=== PATIENT | male | born 1955 | race African-American/Black ===

== ENCOUNTER 2017-08-21 15:15 | Emergency (ER) | payer MEDICAID ==
[~2017-08-21] VITALS: Ht 182.9 cm; Wt 74.8 kg
[2017-08-21 15:15] VITALS: BP 123/72
[2017-08-21] MEDS ORDERED: Cyclobenzaprine 10mg Tab ORAL ONE (15:30)
--- NOTE | 2017-08-21 16:36 | Diagnostic Imaging Report ---
Indication: Back pain Technique: 3 views of the lumbar spine Comparison: None Findings:Vertebral heights are preserved. There is degenerative disc narrowing at L4-5 and L5-S1. The remaining disc spaces are preserved. The pedicles are intact. The bones are osteoporotic. No acute fractures. Surgical clips are seen in the region of the gastroesophageal junction Impression: No acute process This agrees with the preliminary interpretation provided by the emergency room physician
[2017-08-21] MEDS ORDERED: CYCLOBENZAPRINE10 MG ORAL (16:53)
--- NOTE | 2017-08-21 16:59 | Emergency Room Report ---
History of Present Illness General Chief Complaint: Back Pain-No Injury Source: Patient, EMS Present Illness HPI 62-year-old male complains of right low back pain when is back to escape out on him while he was in the store, he denies bowel or bladder incontinence, denies fever, denies any traumatic injury. He reports he is not on any regular meds at all except for chronic pain meds and he takes [place] for that which is prescribed by his pain specialist. He specifically denies use of any blood thinners actually reports he is not on any other prescription medicines at all. Allergies: Coded Allergies: No Known Allergies (Unverified , 08/21/17) Patient History Limited by: language barrier Reviewed Nursing Documentation: PMH: Agreed, PSxH: Agreed Nursing Documentation-PMH Past Medical History: No History, Except For Hx Cardiac Problems: No - FELL OF A ELECTRICAL POLL 1978 Review of Systems All Other Systems: negative except mentioned in HPI Physical Exam Vital Signs Date Time Temp Pulse Resp B/P (MAP) Pulse Ox O2 Delivery O2 Flow Rate FiO2 08/21/17 15:13 98.0 83 16 123/72 99 Room Air 98.1 Sp02 EP Interpretation: reviewed, normal General Appearance: no apparent distress, alert, non-toxic Head: normocephalic Eyes: bilateral eye normal inspection, bilateral eye PERRL, bilateral eye EOMI ENT: normal ENT inspection, hearing grossly normal, normal pharynx, no angioedema, normal voice, moist mucus membranes Neck: normal inspection, full range of motion, supple, supple/symm/no masses Respiratory: chest non-tender, lungs clear, normal breath sounds, chest symmetrical, palpation of chest normal Cardiovascular #1: normal peripheral pulses, regular rate, rhythm Cardiovascular #2: 2+ radial (R), 2+ radial (L) Gastrointestinal: normal inspection, non tender, soft, no mass, no guarding, no rebound Rectal: deferred Genitourinary: normal inspection, no CVA tenderness Musculoskeletal: normal inspection, back normal, gait/station normal, normal range of motion, non-tender, no calf tenderness, pelvis stable Neurologic: alert, responsive, fingerprint classifier III-XII nml as tested, motor strength/tone normal, sensory intact, normal gait, speech normal, other - normal perineum sensation Psychiatric: judgement/insight normal, memory normal, mood/affect normal, no suicidal/homicidal ideation Skin: normal color, no rash, warm/dry, normal turgor Lymphatic: no adenopathy Medical Decision Making Reaction to Intervention: Improved Diagnostic Impression: Primary Impression: Back pain ER Course Patient with no red flags for serious etiologies of back pain, had a normal neuro exam, was given muscle relaxants and Toradol and discharged. Prescription for Flexeril was given. X-ray normal Other X-Ray Diagnostic Results Other X-Ray Diagnostic Results : X-Ray ordered: L-spine # of Views/Limited Vs Complete: 3 View Indication: Pain EP Interpretation: Yes PA Xray: Interpretation reviewed Interpretation: no dislocation, no soft tissue swelling, no fractures, nonspecific bowel gas Impression: No acute disease Electronically Signed by: Yara Lopez MD Last Vital Signs Date Time Temp Pulse Resp B/P (MAP) Pulse Ox O2 Delivery O2 Flow Rate FiO2 08/21/17 15:29 98.0 08/21/17 15:13 83 16 123/72 99 Room Air Disposition: HOME, SELF-CARE Condition: Improved Scripts Cyclobenzaprine Hcl* (FLEXERIL*) 10 Mg Tablet 10 MG ORAL THREE TIMES A DAY, #14 TAB Prov: YARA LOPEZ M.D 08/21/17 Referrals: NOT CHOSEN IPA/,REFERRING (PCP) Departure Forms: Return to Work Return to Work in (Days): 2 Patient Instructions: Back Pain, Adult YARA LOPEZ M.D Aug 21, 2017 16:58
[2017-08-21] MEDS ORDERED: Ketorolac 30mg Inj IM ONE (17:00)
[2017-08-21 17:10] VITALS: BP 125/74
== END 2017-08-21 17:18 | disposition home or self-care (01) ==
LOC: EDBD 15:15 → EMR 15:57
DX: M54.5 Low back pain (principal)
CPT/HCPCS: 72020; 96372; 99283; J1885